=== PATIENT | male | born 1965 | race Caucasian/White ===

== ENCOUNTER 2016-10-03 22:25 | Emergency (ER) | payer OTHER ==
[~2016-10-03] VITALS: Ht 170.2 cm; Wt 79.5 kg
[2016-10-03 22:37] VITALS: Ht 170.2 cm; Wt 79.5 kg
--- NOTE | 2016-10-04 01:29 | ERA ---
ER Documentation Chief Complaint Date/Time DATE: 10/04/16 TIME: 01:29 Chief Complaint intermittent pressure like chest pain x 4 days HPI The patient is a 51-year-old male, presenting to the ER because of left-sided sternal chest pressure intermittently for the last 3-4 days, worse with stretching. He complains of minimal chest pressure at this time 09/20, denies chest pain with exertion or vomiting or diaphoresis. He denies headache, neck pain, abdominal pain, vomiting, dysuria, diarrhea. He smokes socially, drinks socially, denies any illicit drug, denies cardiac family history. Past medical history: Dyslipidemia Past surgical history: Polypectomy ROS All systems reviewed and are negative except as per history of present illness. Allergies Allergies: Coded Allergies: No Known Allergy (Unverified , 10/03/16) Physical Exam Vitals Vital Signs Date Time Temp Pulse Resp B/P Pulse Ox O2 Delivery O2 Flow Rate FiO2 10/04/16 03:12 56 16 146/105 98 Room Air 10/04/16 01:48 62 19 155/111 100 Room Air 10/03/16 22:37 97.8 72 20 162/96 99 Physical Exam Const: No acute distress. Head: Atraumatic. Eyes: Normal Conjunctiva. ENT: Normal External Ears, Nose and Mouth. Neck: Full range of motion. No meningismus. Resp: Clear to auscultation bilaterally. Cardio: Regular rate and rhythm, no murmurs. Abd: Soft, non distended, normal bowel sounds, non tender. Skin: No petechiae or rashes. Back: No midline or flank tenderness. Ext: No cyanosis, or edema. Neur: Awake and alert. No focal deficit Psych: Normal Mood and Affect. Result Diagram: 10/04/16 0142 10/04/16 0142 Results 24 hrs Laboratory Tests Test 10/04/16 01:42 Activated Partial Thromboplast Time 28.7Sec Anion Gap 16 Basophils # 0.010^3/ul Basophils % 0.4% Blood Urea Nitrogen 19mg/dl Calcium Level 9.8mg/dl Carbon Dioxide Level 30mmol/L Chloride Level 103mmol/L Creatine Kinase 197IU/L Creatine Kinase Index 1.0 Creatinine 1.01mg/dl Creatinine Kinase MB (Mass) 1.93ng/ml Eosinophils # 0.310^3/ul Eosinophils % 4.0% Glucose Level 90mg/dl Hematocrit 42.2% Hemoglobin 14.3g/dl INR International Normalized Ratio 1.02 Lymphocytes # 3.710^3/ul Lymphocytes % 44.2% Mean Corpuscular Hemoglobin 30.8pg Mean Corpuscular Hemoglobin Concent 33.9g/dl Mean Corpuscular Volume 90.8fl Mean Platelet Volume 9.8fl Monocytes # 0.710^3/ul Monocytes % 8.6% Neutrophils # 3.610^3/ul Neutrophils % 42.6% Nucleated Red Blood Cells # 0.010^3/ul Nucleated Red Blood Cells % 0.0/100WBC Platelet Count 72589^3/UL Potassium Level 4.1mmol/L Prothrombin Time 13.4Sec Prothrombin Time Ratio 1.0 Red Blood Count 4.6510^6/ul Red Cell Distribution Width 12.2% Sodium Level 145mmol/L Troponin I < 0.010ng/ml White Blood Count 8.510^3/ul Procedures/MDM EKG: Read by emergency physician Rate/Rhythm: Normal Sinus Rhythm 70 beats/min QRS, ST, T-waves: No ST elevation, no T inversion Impression: Normal EKG [place] [id number] Radiology Main Line: [phone] DIAGNOSTIC IMAGING REPORT Patient: MADELAINE ESTRADA : 1965 Age: 51 Sex: M MR #: [id number] DOS: 10/04/16 0134 Ordering MD: RAVINDER HINOJOSA MD Location: E/R Room/Bed: PROCEDURE: CHEST - 1 VIEW CLINICAL INDICATION: 51-year-old male with chest pain. TECHNIQUE: A single frontal AP upright view of the chest was performed portably. The images were reviewed on a PACS workstation. COMPARISON: None. FINDINGS: The cardiomediastinal silhouette has a normal appearance. There is no evidence for an infiltrate. There is no evidence for congestive heart failure. There is no evidence for pneumothorax. The osseous structures are intact. IMPRESSION: No evidence for active cardiopulmonary disease. .Tahir Duran MD, MD Date Time Electronically viewed and signed by .Tahir Duran MD, MD on 10/04/2016 01:57 .M/ CC: RAVINDER HINOJOSA MD MEDICAL MAKING DECISION: The patient is a 51-year-old male, presenting with intermittent chest pressure of unclear etiology. He remained well in the emergency department without any recurrent symptoms. I do not suspect ACS. The differential diagnoses considered include but are not limited to acute coronary syndrome, acute myocardial infarction, pericarditis, pulmonary embolism , aortic dissection, pneumonia, pleural effusion, pneumothorax, GERD, chest wall pain. Departure Diagnosis: Primary Impression: Chest pain Condition: Good Comments I discussed the findings with the patient. 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 RAVINDER HINOJOSA MD Oct 04, 2016 01:29
--- NOTE | 2016-10-04 01:58 | RADRPT ---
PROCEDURE: CHEST - 1 VIEW CLINICAL INDICATION: 51-year-old male with chest pain. TECHNIQUE: A single frontal AP upright view of the chest was performed portably. The images were reviewed on a PACS workstation. COMPARISON: None. FINDINGS: The cardiomediastinal silhouette has a normal appearance. There is no evidence for an infiltrate. There is no evidence for congestive heart failure. There is no evidence for pneumothorax. The osseou s structures are intact. IMPRESSION: No evidence for active cardiopulmonary disease. .Tahir Duran MD, MD Date Time Electronically viewed and signed by .Tahir Duran MD, on 10/04/2016 01:57 .M/
[2016-10-04 02:28] LABS: ADD SCAN DIFF NO
[2016-10-04 02:30] LABS: BASOPHILS % 0.4 % (0.0-2.0); EOSINOPHILS # 0.3 10^3/ul (0.0-0.5); HEMATOCRIT 42.2 % (42.0-52.0); HEMOGLOBIN 14.3 g/dl (14.0-18.0); LYMPHOCYTES # 3.7 10^3/ul (0.8-2.9); LYMPHOCYTES % 44.2 % (15.0-51.0); MEAN CORPUSCULAR HEMOGLOBIN 30.8 pg (29.0-33.0); MEAN CORPUSCULAR HGB CONC 33.9 g/dl (32.0-37.0); MEAN CORPUSCULAR VOLUME 90.8 fl (82.0-101.0); MEAN PLATELET VOLUME 9.8 fl (7.4-10.4); MONOCYTE # 0.7 10^3/ul (0.3-0.9); MONOCYTES % 8.6 % (0.0-11.0); NEUTROPHIL # 3.6 10^3/ul (1.6-7.5); NEUTROPHILS % 42.6 % (39.0-77.0); PLATELET COUNT 236 10^3/UL (140-415); RED BLOOD COUNT 4.65 10^6/ul (4.70-6.10); RED CELL DISTRIBUTION WIDTH 12.2 % (11.5-14.5); WHITE BLOOD COUNT 8.5 10^3/ul (4.8-10.8)
[2016-10-04 02:40] LABS: INR 1.02; PROTIME 13.4 Sec (12.2-14.2)
[2016-10-04 02:41] LABS: PARTIAL THROMBOPLASTIN TIME 28.7 Sec (25.0-35.0)
[2016-10-04 02:42] LABS: CHLORIDE 103 mmol/L (97-110)
[2016-10-04 02:43] LABS: POTASSIUM 4.1 mmol/L (3.5-5.1); SODIUM 145 mmol/L (135-144)
[2016-10-04 02:45] LABS: CREATININE 1.01 mg/dl (0.61-1.24)
[2016-10-04 02:46] LABS: ANION GAP 16 (8-16); BLOOD UREA NITROGEN 19 mg/dl (7-20); CALCIUM 9.8 mg/dl (8.4-10.2); CARBON DIOXIDE 30 mmol/L (21-31); GLUCOSE 90 mg/dl (70-220)
[2016-10-04 02:47] LABS: CREATINE KINASE 197 IU/L (23-200)
[2016-10-04 03:16] LABS: CK-MB 1.93 ng/ml (0.0-2.4); TROPONIN-I < 0.010 ng/ml (0.00-0.12)
[2016-10-04 03:17] LABS: TROPONIN-I < 0.010 ng/ml (0.00-0.12)
[2016-10-04 03:54] VITALS: BP 133/103; PULSE 59; RESP 18
== END 2016-10-04 04:03 | disposition home or self-care (01) ==
LOC: E/R 22:25
DX: R07.89 Other chest pain (principal); F17.210 Nicotine dependence, cigarettes, uncomplicated
CPT/HCPCS: 36415; 71010; 80048; 82550; 82553; 84484; 85025; 85610; 85730; 93005; Z7502

== ENCOUNTER 2016-12-17 19:15 | Emergency (ER) | payer OTHER ==
[~2016-12-17] VITALS: Ht 177.8 cm; Wt 79.5 kg
[2016-12-17 19:17] VITALS: Ht 177.8 cm; Wt 79.5 kg
[2016-12-17] MEDS ORDERED: HYDROCODONE/APAP (5/325) TAB PO STA (19:32)
--- NOTE | 2016-12-17 20:43 | ERD ---
ER Documentation Chief Complaint Date/Time DATE: 12/17/16 TIME: 20:41 Chief Complaint headache x10 days HPI This is a 51-year-old male with history of high cholesterol presenting to the emergency department complaining of a constant mild headache for the past 10 days, he states that it is located in the occipital region and radiates to the frontal region. Patient denies any nausea, vomiting, vision changes, lethargy, photophobia. Patient states that he does have mild dizziness that occurs when he gets up from a chair and starts walking sometimes, but denies any dizziness today. Patient states that when he takes Aleve he has relief. ROS All systems reviewed and are negative except as per history of present illness. Medications Home Meds Active Scripts Acetaminophen* (Acetaminophen*) 650 Mg Tablet, 650 MG PO Q6H Y for PAIN AND OR ELEVATED TEMP, #30 TAB Prov:BRIANDA HAYES PA-C 12/17/16 Allergies Allergies: Coded Allergies: No Known Allergy (Unverified , 12/17/16) PMhx/Soc Medical and Surgical Hx: pt denies Surgical Hx History of Surgery: No Anesthesia Reaction: No Hx Neurological Disorder: No Hx Respiratory Disorders: No Hx Cardiac Disorders: Yes (HLD) Hx Psychiatric Problems: No Hx Miscellaneous Medical Probl: No Hx Alcohol Use: No Hx Substance Use: No Hx Tobacco Use: Yes Smoking Status: Current every day smoker Physical Exam Vitals Vital Signs Date Time Temp Pulse Resp B/P Pulse Ox O2 Delivery O2 Flow Rate FiO2 12/17/16 19:17 98.7 84 20 183/90 99 Physical Exam GENERAL: well-developed/well-nourished, in no apparent distress, non-toxic appearing HENT: NC/AT, bilateral tympanic membrane is normal with good cone of light, nares patent, oropharynx clear without exudates EYES: Conjunctiva normal, PERRLA, EOMI, no nystagmus noted NECK: Supple, no lymphadenopathy PULM: CTA bilaterally, no rales, rhonchi, or wheezing heard CV: Normal S1S2, RRR, good capillary refill GI: Soft, non-distended, normal bowel sounds, non-tender BACK: No midline tenderness, no masses, No CVAT EXT: No clubbing, cyanosis, or edema NEURO: Alert and orientated to person, place, and time. CN II-IIX intact. Gait and coordination were normal. Hand workers compensation claims specialist strength were equal and within normal limits SKIN: Intact, normal turgor PSYCH: Normal mood and mentation, patient denied SI Results 24 hrs Current Medications Medications (Trade) Dose Ordered Sig/Shawn Route PRN Reason Start Time Stop Time Status Last Admin Dose Admin Acetaminophen/ Hydrocodone Bitart ([place] (5/325)) 2 tab ONCE STAT PO 12/17/16 19:32 12/17/16 19:33 DC Procedures/MDM 57 year old male with history of high cholesterol presents with headache. My differential diagnoses include tension, migraine, and cluster headache, overuse medication headache, subarachnoid hemorrhage, meningitis, stroke. Pain relief was gi offered in the ED however patient refused since he did not have any pain. Neurology exam was normal, patient is speaking clearly and ambulating well. CT of the head has been done, radiology stated: Unremarkable noncontrast CT of the brain. Patient's blood pressure was elevated (>120/80) but appears stable without evidence of hypertension emergency or urgency. The patient was counseled about the risks of hypertension and urged to pursue outpatient monitoring and therapy within a week with their primary care physician. I have reassessed patient to discuss his diagnostic testing with the patient and discussed with him that he should follow-up with his primary care physician in the next couple days. Patient agreed and understood that. He hemodynamically stable and neurovascularly intact. Prescriptions tylenol were given. Discussed to follow up with a primary care physician in the next couple days. Return to the ER if condition worsens or not improving as expected. Patient agreed and understood this plan. Stable for discharge home Departure Diagnosis: Primary Impression: Headache Condition: Stable BRIANDA HAYES PA-C December 17, 2016 20:43
--- NOTE | 2016-12-17 20:47 | RADRPT ---
PROCEDURE: CT brain without contrast CLINICAL INDICATION: Headaches. Dizziness TECHNIQUE: A CT of the brain was performed utilizing axial sections from the skull base through th e vertex without contrast. Sagittal and coronal images were also reformatted. The exam CTDIvol = 40. 22 mGy and DLP = 768.50 mGy-cm. COMPARISON: None available FINDINGS: No acute intracranial hemorrhage is identified. There is no mass effect or midline shift. No extra -axial fluid collection is seen. The ventricles and sulci are within normal limits for size and con figuration. The density of the brain is within normal limits. Farah-white differentiation is preser selma. The osseous structures are unremarkable. The mastoid air cells and visualized paranasal sinuses are clear. RPTAT:HJJR IMPRESSION: Unremarkable noncontrast CT of the brain. Physician Damaris Date Time Electronically viewed and signed by Physician Damaris on 12/17/2016 20:46 /
[2016-12-17] MEDS ORDERED: ACET-2047 PO (20:50)
[2016-12-17 21:01] VITALS: BP 128/87; PULSE 68; RESP 20
== END 2016-12-17 21:02 | disposition home or self-care (01) ==
LOC: FTE 19:15
DX: R51 Headache (principal); F17.210 Nicotine dependence, cigarettes, uncomplicated
CPT/HCPCS: 70450